=== PATIENT | male | born 1965 | race African-American/Black ===

== ENCOUNTER 2019-11-17 17:08 | Inpatient (IN) | payer OTHER ==
[2019-11-17 18:36] VITALS: BMI 20.3
--- NOTE | 2019-11-18 02:54 | HP ---
CIWA Score Nausea/Vomitin Muscle Tremors: 4-Moderate,w/Arms Extend Anxiety: 3 Agitation: 4-Moderately Restless Paroxysmal Sweats: 2 Orientation: 0-Oriented Tacttile Disturbances: 0-None Auditory Disturbances: 0-None Visual Disturbances: 0-None Headache: 0-None Present CIWA-Ar Total Score: 15 - Admission Criteria OASAS Guidelines: Admission for Medically Managed Detox: Requires at least one of the followin. CIWA greater than 12 2. Seizures within the past 24 hours 3. Delirium tremens within the past 24 hours 4. Hallucinations within the past 24 hours 5. Acute intervention needed for co occurring medical disorder 6. Acute intervention needed for co occurring psychiatric disorder 7. Severe withdrawal that cannot be handled at a lower level of care (continued vomiting, continued diarrhea, abnormal vital signs) requiring intravenous medication and/or fluids 8. Admission ROS S - HPI Chief Complaint: Seeking admission to detox from alcohol Allergies/Adverse Reactions: Allergies Allergy/AdvReac Type Severity Reaction Status Date / Time No Known Allergies Allergy Verified 11/17/19 18:24 History of Present Illness: 54 years old male with a long history of alcohol dependence(since age 26) is seeking admission to detox. Patient was referred by [facility] where he sought medical help status post a fall. He denies past medical history , psych. history and suicidal ideation. 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 Exam Limitations: No Limitations - Ebola screening Have you traveled outside of the country in the last 21 days: No (N) Have you had contact with anyone from an Ebola affected area: No Do you have a fever: No - Review of Systems Constitutional: Malaise, Night Sweats, Changes in sleep, Weakness EENT: reports: Nose Congestion Respiratory: reports: No Symptoms reported Cardiac: reports: No Symptoms Reported GI: reports: Nausea, Poor Appetite, Poor Fluid Intake, Abdominal cramping : reports: No Symptoms Reported Integumentary: reports: Dryness, Flushing Neuro: reports: Tremors Endocrine: reports: No Symptoms Reported Hematology: reports: No Symptoms Reported Psychiatric: reports: Orientated x3, Anxious, Depressed Other Systems: Reviewed and Negative Patient History - Patient Medical History Hx Anemia: No Hx Asthma: No Hx Chronic Obstructive Pulmonary Disease (COPD): No Hx Cancer: No Hx Cardiac Disorders: No Hx Congestive Heart Failure: No Hx Hypertension: No Hx Hypercholesterolemia: No Hx Pacemaker: No HX Cerebrovascular Accident: No Hx Seizures: No Hx Dementia: No Hx Diabetes: No Hx Gastrointestinal Disorders: No Hx Liver Disease: No Hx Sexually Transmitted Disorders: No Hx Renal Disease (ESRD): No Hx Thyroid Disease: No Hx Human Immunodeficiency Virus (HIV): No (Never tested) Hx Hepatitis C: No Hx Depression: No Hx Suicide Attempt: No Hx Bipolar Disorder: No Hx Schizophrenia: No - Patient Surgical History Past Surgical History: No - PPD History Previous Implant?: Yes Documented Results: Negative w/o proof Implanted On Prior R Admission?: No PPD to be Administered?: Yes - Reproductive History Patient is a Female of Child Bearing Age (11 -55 yrs old): No (male) - Smoking Cessation Smoking history: Never smoked Have you smoked in the past 12 months: No Hx Chewing Tobacco Use: No Initiated information on smoking cessation: No - Substance & Tx. History Hx Alcohol Use: Yes Hx Substance Use: Yes Substance Use Type: Alcohol, Marijuana Hx Substance Use Treatment: No - Substances abused Alcohol Substance route: Oral Frequency: Daily Amount used: 2 beers Age of first use: 26 Date of last use: 11/16/19 Admission Physical Exam [facility] - Vital Signs Vital Signs: Vital Signs - 24 hr 11/17/19 11/17/19 18:22 18:44 Temperature 98.7 F 98.7 F Pulse Rate 83 83 Respiratory 16 16 Rate Blood Pressure 120/90 120/90 - Physical General Appearance: Yes: Within Normal Limits, Tremorous HEENTM: Yes: Within Normal Limits Respiratory: Yes: Normal Breath Sounds Neck: Yes: Within Normal Limits Breast: Yes: Breast Exam Deferred Cardiology: Yes: Regular Rhythm, Regular Rate Abdominal: Yes: Normal Bowel Sounds, Soft Genitourinary: Yes: Within Normal Limits Back: Yes: Normal Inspection Musculoskeletal: Yes: Within Normal Limits Extremities: Yes: Normal Inspection Neurological: Yes: Within Normal Limits, Alert, Normal Mood/Affect Integumentary: Yes: Normal Color, Mottled Lymphatic: Yes: Within Normal Limits - Diagnostic (1) Alcohol dependence with withdrawal, uncomplicated Current Visit: Yes Status: Acute Cleared for Admission [facility] - Detox or Rehab [facility] Level of Care: Medically Managed Detox Regimen/Protocol: Librium Claeared for Rehab Admission: No Screened but not Admitted - Documentation of Visit Patient Does Not Meet Criteria for Admission: No Breathalyzer - Breathalyzer Breathalyzer: 0 Urine Drug Screen - Test Device Lot number: [id number] Expiration date: 05/27/21 - Control Is test valid?: Yes - Results Drug screen NEGATIVE: No Urine drug screen results: THC-Marijuana, BZO-Benzodiazepines Inpatient Rehab Admission - Rehab Decision to Admit Inpatient rehab admission?: No
[2019-11-18] MEDS ORDERED: chlordiazePOXIDE HCL 10 MG CAPSULE PO PRN (03:14)
[2019-11-18] MEDS ORDERED: MAGNESIUM HYDROX 2400MG/30ML ORAL SUSPENSION 30 ML CUP PO PRN (03:14)
[2019-11-18] MEDS ORDERED: ACETAMINOPHEN 325 MG TABLET (FP) PO PRN ×2 (03:14)
[2019-11-18] MEDS ORDERED: BISMUTH SUBSALICYLATE 524 MG/30 ML UD PO PRN (03:14)
[2019-11-18] MEDS ORDERED: MAG HYDROX/AL HYDROX/SIMETH 30 ML UNIT-DOSE CUP PO PRN (03:14)
[2019-11-18] MEDS ORDERED: MENTHOL/PHENOL 1 EACH UD MM PRN (03:14)
[2019-11-18] MEDS ORDERED: METHOCARBAMOL 500 MG TABLET PO PRN (03:14)
[2019-11-18] MEDS ORDERED: MAGNESIUM CITRATE 300 ML BOTTLE PO PRN (03:14)
[2019-11-18] MEDS ORDERED: IBUPROFEN 400 MG TABLET (FP) PO PRN (03:14)
[2019-11-18] MEDS: chlordiazePOXIDE HCL 25 MG CAPSULE PO SCH ×3 (04:29→21:28)
--- NOTE | 2019-11-18 10:29 | EKG ---
Test Reason : Blood Pressure : / mmHG Vent. Rate : 057 BPM Atrial Rate : 057 BPM P-R Int : 136 ms QRS Dur : 086 ms QT Int : 430 ms P-R-T Axes : 063 017 039 degrees QTc Int : 418 ms POOR DATA QUALITY, INTERPRETATION MAY BE ADVERSELY AFFECTED SINUS BRADYCARDIA POSSIBLE LEFT ATRIAL ENLARGEMENT BORDERLINE ECG NO PREVIOUS ECGS AVAILABLE Confirmed by EDGARD DALE, VAL ([id number]) on 11/18/2019 10:29:23 AM Referred By: ANIBAL Confirmed By:VAL RENE MD
[2019-11-18] MEDS: PRENATAL VITAMINS W/ FOLIC ACID TABLET (FP) PO SCH (10:42)
--- NOTE | 2019-11-18 12:41 | PN ---
S CIWA - CIWA Score Nausea/Vomitin-No Nausea/No Vomiting Muscle Tremors: 2 Anxiety: 1-Mildly Anxious Agitation: 2 Paroxysmal Sweats: 2 Orientation: 0-Oriented Tacttile Disturbances: 0-None Auditory Disturbances: 0-None Visual Disturbances: 0-None Headache: 0-None Present CIWA-Ar Total Score: 7 BHS Progress Note (SOAP) Subjective: feeling better sweats little anxiety Objective: 11/18/19 12:40 Vital Signs Temperature 98.1 F 11/18/19 09:25 Pulse Rate 78 11/18/19 09:25 Respiratory Rate 18 11/18/19 09:25 Blood Pressure 136/91 11/18/19 09:25 O2 Sat by Pulse Oximetry (%) aaox3 ambulating no acute distress pending labs Assessment: 11/18/19 12:40 withdrawals Plan: continue detox increase fluids
[2019-11-18] MEDS: THIAMINE HCL 100 MG TABLET (FP) PO SCH (21:28)
[2019-11-18] MEDS: MELATONIN 5 MG TABLETS PO PRN (21:28)
[2019-11-19] MEDS: chlordiazePOXIDE 5 MG CAPSULE PO SCH ×3 (06:00→22:38)
[2019-11-19 10:21] LABS: HEMATOCRIT 36.3 % (35.4-49); HEMOGLOBIN 12.2 GM/dL (11.7-16.9); MCH 32.5 pg (25.7-33.7); MCHC 33.6 g/dl (32.0-35.9); MEAN CELL VOLUME 96.9 fl (80-96); MEAN PLT VOLUME 9.2 fl (7.5-11.1); PLATELET COUNT 136 K/MM3 (134-434); RBC 3.75 M/mm3 (4.00-5.60); RDW 13.7 % (11.9-15.9); WHITE BLOOD COUNT 6.1 K/mm3 (4.0-10.0)
[2019-11-19] MEDS: PRENATAL VITAMINS W/ FOLIC ACID TABLET (FP) PO SCH (10:21)
[2019-11-19 10:38] LABS: ALBUMIN 3.6 g/dl (3.4-5.0); BILIRUBIN,TOTAL 1.6 mg/dL (0.2-1); BLOOD UREA NITROGEN 5.1 mg/dL (7-18); CREATININE 0.8 mg/dL (0.55-1.3); POTASSIUM 4.1 mmol/L (3.5-5.1); TOT PROT 7.6 g/dl (6.4-8.2)
--- NOTE | 2019-11-19 11:45 | PN ---
[facility] CIWA - CIWA Score Nausea/Vomitin-No Nausea/No Vomiting Muscle Tremors: 1-None Visible, but [place] Anxiety: 0-No Anxiety, at Ease Agitation: 0-Normal Activity Paroxysmal Sweats: No Perspiration Orientation: 0-Oriented Tacttile Disturbances: 0-None Auditory Disturbances: 0-None Visual Disturbances: 0-None Headache: 0-None Present CIWA-Ar Total Score: 1 BHS Progress Note (SOAP) Subjective: Feeling well, no complaints Objective: 11/19/19 11:42 11/19/19 11:44 Vital Signs Temperature 98.4 F 11/19/19 11:04 Pulse Rate 92 H 11/19/19 11:04 Respiratory Rate 18 11/19/19 11:04 Blood Pressure 100/66 11/19/19 11:04 O2 Sat by Pulse Oximetry (%) Laboratory Last Values WBC 6.1 K/mm3 (4.0-10.0) 11/19/19 08:00 RBC 3.75 M/mm3 (4.00-5.60) L 11/19/19 08:00 Hgb 12.2 GM/dL (11.7-16.9) 11/19/19 08:00 Hct 36.3 % (35.4-49) 11/19/19 08:00 MCV 96.9 fl (80-96) H 11/19/19 08:00 MCH 32.5 pg (25.7-33.7) 11/19/19 08:00 MCHC 33.6 g/dl (32.0-35.9) 11/19/19 08:00 RDW 13.7 % (11.9-15.9) 11/19/19 08:00 Plt Count 136 K/MM3 (134-434) 11/19/19 08:00 MPV 9.2 fl (7.5-11.1) 11/19/19 08:00 Sodium 140 mmol/L (136-145) 11/19/19 08:00 Potassium 4.1 mmol/L (3.5-5.1) 11/19/19 08:00 Chloride 104 mmol/L (98-107) 11/19/19 08:00 Carbon Dioxide 30 mmol/L (21-32) 11/19/19 08:00 Anion Gap 6 MMOL/L (8-16) L 11/19/19 08:00 BUN 5.1 mg/dL (7-18) L 11/19/19 08:00 Creatinine 0.8 mg/dL (0.55-1.3) 11/19/19 08:00 Est GFR (CKD-EPI)AfAm 118.20 11/19/19 08:00 Est GFR (CKD-EPI)NonAf 101.99 11/19/19 08:00 Random Glucose 106 mg/dL (74-106) 11/19/19 08:00 Calcium 10.0 mg/dL (8.5-10.1) 11/19/19 08:00 Total Bilirubin 1.6 mg/dL (0.2-1) H 11/19/19 08:00 AST 65 U/L (15-37) H 11/19/19 08:00 ALT 67 U/L (13-61) H 11/19/19 08:00 Alkaline Phosphatase 48 U/L (45-117) 11/19/19 08:00 Total Protein 7.6 g/dl (6.4-8.2) 11/19/19 08:00 Albumin 3.6 g/dl (3.4-5.0) 11/19/19 08:00 Gnl: WDWN, in NAD Awake, alert Ambulating in garcia Assessment: 11/19/19 11:43 1. Alcohol detox Plan: 1. continue alcohol detox protocol
--- NOTE | 2019-11-19 15:15 | EKG ---
Test Reason : Blood Pressure : / mmHG Vent. Rate : 075 BPM Atrial Rate : 075 BPM P-R Int : 142 ms QRS Dur : 084 ms QT Int : 378 ms P-R-T Axes : 053 003 051 degrees QTc Int : 422 ms NORMAL SINUS RHYTHM NORMAL ECG WHEN COMPARED WITH ECG OF 18-NOV-2019 03:35, NO SIGNIFICANT CHANGE WAS FOUND Confirmed by CHARIS ARGUELLES MD ([id number]) on 11/19/2019 3:15:18 PM Referred By: Confirmed By:CHARIS ARGUELLES MD
[2019-11-19] MEDS: THIAMINE HCL 100 MG TABLET (FP) PO SCH (22:38)
[2019-11-19] MEDS: MELATONIN 5 MG TABLETS PO PRN (22:38)
[2019-11-20] MEDS ORDERED: chlordiazePOXIDE HCL 10 MG CAPSULE PO PRN
[2019-11-20] MEDS: chlordiazePOXIDE HCL 10 MG CAPSULE PO SCH ×3 (06:23→22:03)
[2019-11-20] MEDS: PRENATAL VITAMINS W/ FOLIC ACID TABLET (FP) PO SCH (10:59)
--- NOTE | 2019-11-20 13:53 | PN ---
[facility] CIWA - CIWA Score Nausea/Vomitin-No Nausea/No Vomiting Muscle Tremors: 1-None Visible, but [place] Anxiety: 0-No Anxiety, at Ease Agitation: 0-Normal Activity Paroxysmal Sweats: No Perspiration Orientation: 0-Oriented Tacttile Disturbances: 0-None Auditory Disturbances: 0-None Visual Disturbances: 0-None Headache: 0-None Present CIWA-Ar Total Score: 1 BHS Progress Note (SOAP) Subjective: sweats Objective: 11/20/19 13:52 Vital Signs Temperature 97.7 F 11/20/19 13:51 Pulse Rate 114 H 11/20/19 13:51 Respiratory Rate 18 11/20/19 13:51 Blood Pressure 100/64 11/20/19 13:51 O2 Sat by Pulse Oximetry (%) aaox3 ambulating no acute distress Assessment: 11/20/19 13:52 mild withdrawal sx Plan: d/c in am
[2019-11-20] MEDS: MELATONIN 5 MG TABLETS PO PRN (22:03)
[2019-11-20] MEDS: THIAMINE HCL 100 MG TABLET (FP) PO SCH (22:03)
[2019-11-21] MEDS ORDERED: chlordiazePOXIDE HCL 10 MG CAPSULE PO ONE (05:00)
[2019-11-21 06:09] VITALS: BP 117/76; PULSE 75; TEMP 97.9
--- NOTE | 2019-11-21 18:25 | DS ---
[facility] Detox Discharge Summary Admission Date: 11/18/19 Discharge Date: 11/21/19 - History Present History: Alcohol Dependence Additional Comments: PATIENT WILL ATTEND LOCAL 12-STEP/ AA OUTPATIENT SUPPORT GROUP PROGRAM PART OF AFTERCARE. PATIENT WAS DISCHARGED FROM DETOX UNIT IN STABLE MEDICAL CONDITION. Pertinent Past History: Denies. - Physical Exam Results Vital Signs: Vital Signs Temperature 97.9 F 11/21/19 06:08 Pulse Rate 75 11/21/19 06:08 Respiratory Rate 18 11/21/19 06:08 Blood Pressure 117/76 11/21/19 06:08 O2 Sat by Pulse Oximetry (%) Pertinent Admission Physical Exam Findings: WITHDRAWAL SYMPTOMS. Laboratory Tests 11/19/19 11/19/19 11/19/19 08:00 08:00 08:00 WBC 6.1 RBC 3.75 L Hgb 12.2 Hct 36.3 MCV 96.9 H MCH 32.5 MCHC 33.6 RDW 13.7 Plt Count 136 MPV 9.2 Sodium 140 Potassium 4.1 Chloride 104 Carbon Dioxide 30 Anion Gap 6 L BUN 5.1 L Creatinine 0.8 Est GFR (CKD-EPI)AfAm 118.20 Est GFR (CKD-EPI)NonAf 101.99 Random Glucose 106 Calcium 10.0 Total Bilirubin 1.6 H AST 65 H ALT 67 H Alkaline Phosphatase 48 Total Protein 7.6 Albumin 3.6 RPR Titer Nonreactive LABS NOTED. - Treatment Hospital Course: Detox Protocol Followed, Detoxed Safely, Responded well, Discharged Condition Good Patient has Accepted a Rehab Referral to: PATIENT WILL ATTEND LOCAL 12-AA OUTPATIENT SUPPORT GROUP. - Medication Discharge Medications: Ambulatory Orders NK [No Known Home Medication] 11/17/19 - Diagnosis (1) Alcohol dependence with withdrawal, uncomplicated Status: Acute - AMA Did Patient Leave Against Medical Advice: No
== END 2019-11-21 07:01 | disposition home or self-care (01) | DRG 775 ==
LOC: YASAS 17:08 → Y6N 11-18 03:22
PROVIDERS: ADMIT Allergy & Immunology; ATTEND Allergy & Immunology
PROC: HZ2ZZZZ Detoxification Services for Substance Abuse Treatment (ICD-10-PCS; principal; 2019-11-18)
DX: F10.230 Alcohol dependence with withdrawal, uncomplicated (principal)
CPT/HCPCS: 36415; 80053; 85027; 86593; 93005; 93010

== ENCOUNTER 2020-08-16 08:51 | Inpatient (IN) | payer OTHER ==
--- OUTSIDE RECORDS SUMMARY | 2020-08-16 08:54 | XMS ---
:1965 Author Organization [facility] Support Name Relationship Address Phone UE Unavailable Unavailable Unavailable MEGAN MAGALLANES SISTER [address] [place] [address] Re-disclosure Warning The records that you are about to access may contain information from federally- assisted alcohol or drug abuse programs. If such information is present, then the following federally mandated warning applies: This information has been disclosed to you from records protected by federal confidentiality rules (42 CFR part 2). The federal rules prohibit you from making any further disclosure of this information unless further disclosure is expressly permitted by the written consent of the person to whom it pertains or as otherwise permitted by 42 CFR part 2. A general authorization for the release of medical or other information is NOT sufficient for this purpose. The Federal rules restrict any use of the information to criminally investigate or prosecute any alcohol or drug abuse patient.The records that you are about to access may contain highly sensitive health information, the redisclosure of which is protected by Article 27-F of the [facility] Public Health law. If you continue you may haveaccess to information: Regarding HIV / AIDS; Provided by facilities licensed or operated by the [facility] Office of Mental Health; or Provided by the [facility] Office for People With Developmental Disabilities. If such information is present, then the following [facility] mandated warning applies: This information has been disclosed to you from confidential records which are protected by state law. State law prohibits you from making any further disclosure of this information without the specific written consent of the person to whom it pertains, or as otherwise permitted by law. Any unauthorized further disclosure in violation of state law may result in a fine or detention sentence or both. A general authorization for the release of medical or other information is NOT sufficient authorization for further disclosure. Insurance Providers Payer name Policy type Policy ID Covered Covered alliance party's Policy P melonie / Coverage alliance party ID relationship to [facility] ormation type [facility] [id number] FIRST Results ID Date Data Source [id number] 07/01/2020 09:57:[address] [facility] System Name Value Range Interpretation Code Description Data Cynthia rce(s) Supporting Document(s ) SARS-CoV-2 [facility] Ql KAITLYNN+probe This lab was ordered by [facility] and reported by [facility]. ID Date Data Source [id number] 02/27/2020 05:24:[address] [facility] Name Value Range Interpretation Code Description Data Cynthia rce(s) Supporting Document(s ) SARS-CoV-2 [facility] Ql KAITLYNN+probe This lab was ordered by [facility] and reported by [facility]. Procedure
--- NOTE | 2020-08-16 09:34 | BHS.RME ---
2019 N Coronavirus Screen - COVID-19 Screening Questions Dx of COVID-19 or had a positive test in the last 4 weeks?: No Contact with known/suspected COVID patient in last 14 days?: No Any of these symptoms or contact with someone who has?: None Traveled domestically/internationally in the last 14 days?: No Screen score: 0 Screen result: Further Evaluation Substance Use & Tx History - Substance Use History Alcohol Substance amount: 4 x 24 ounce beer Frequency of use: Daily Substance route: Oral Date of Last Use: 08/15/20 - Last Treatment Date of last treatment: February 2020, detox Physical/Psych/Mental Status - Behavior General Behavior: Increased activity (restlessness, agitation) Eye Contact: Normal - Cooperativeness Cooperativeness: Cooperative - Thinking Thought Processes: Tight Thought content: Future oriented - Physical Health Problems Is patient presently having any pain?: Yes (neck hurts he attributes to sleeping on the floor) Does patient presently have any injuries (include location): No Does patient currently have a fever: No CIWA Nausea/Vomitin-Mild Nausea/No Vomiting Muscle Tremors: 4-Moderate,w/Arms Extend Anxiety: 3 Agitation: 0-Normal Activity Paroxysmal Sweats: No Perspiration Orientation: 0-Oriented Tacttile Disturbances: 0-None Auditory Disturbances: 1-Very Mild Visual Disturbances: 0-None Headache: 3-Moderate CIWA-Ar Total Score: 12
[2020-08-16 10:39] VITALS: BMI 20.1
--- NOTE | 2020-08-16 10:47 | HP ---
CIWA Score Nausea/Vomitin-Mild Nausea/No Vomiting Muscle Tremors: 4-Moderate,w/Arms Extend Anxiety: 3 Agitation: 0-Normal Activity Paroxysmal Sweats: No Perspiration Orientation: 0-Oriented Tacttile Disturbances: 0-None Auditory Disturbances: 1-Very Mild Visual Disturbances: 0-None Headache: 3-Moderate CIWA-Ar Total Score: 12 - Admission Criteria OASAS Guidelines: Admission for Medically Managed Detox: Requires at least one of the followin. CIWA greater than 12 2. Seizures within the past 24 hours 3. Delirium tremens within the past 24 hours 4. Hallucinations within the past 24 hours 5. Acute intervention needed for co occurring medical disorder 6. Acute intervention needed for co occurring psychiatric disorder 7. Severe withdrawal that cannot be handled at a lower level of care (continued vomiting, continued diarrhea, abnormal vital signs) requiring intravenous medication and/or fluids 8. Admitting History and Physical - Admission Chief Complaint: Mr. Ritter is a 55 yo man who presents to [facility] requesting admission for alcohol use disorder. History of Present Illness: Mr. Ritter is a 55 yo man who presents to [facility] requesting admission for alcohol use disorder. He was last here in February and completed detox. He states he attended AA after discharge, but, then the meetings were cancelled due to COVID. PMH: fell in 1989 with DVT, DVT tx x 6 years, currently not on any anticoagulation PSH/Psych/Legal: none SOC: lives with sister Substance Use History Alcohol Substance amount: 4 x 24 ounce beer Frequency of use: Daily Substance route: Oral Date of Last Use: 08/15/20 No hx of seizure, blackouts. 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 - Last Treatment Date of last treatment: February 2020, detox History Source: Patient Limitations to Obtaining History: No Limitations - Smoking History Smoking history: Never smoked Have you smoked in the past 12 months: No - Alcohol/Substance Use Hx Alcohol Use: Yes Admission ROS [facility] Allergies/Adverse Reactions: Allergies Allergy/AdvReac Type Severity Reaction Status Date / Time No Known Allergies Allergy Verified 08/16/20 10:36 Exam Limitations: No Limitations - Ebola screening Have you traveled outside of the country in the last 21 days: No Have you been sick,other than usual withdrawal symptoms: No Do you have a fever: No - Review of Systems Constitutional: No Symptoms Reported EENT: reports: No Symptoms Reported Respiratory: reports: No Symptoms reported Cardiac: reports: No Symptoms Reported GI: reports: Nausea : reports: No Symptoms Reported Musculoskeletal: reports: Neck Pain (he attributes to sleeping on the floor the last few nights) Integumentary: reports: No Symptoms Reported Neuro: reports: No Symptoms reported Endocrine: reports: No Symptoms Reported Hematology: reports: No Symptoms Reported Psychiatric: reports: Anxious Patient History - Patient Medical History Hx Anemia: No Hx Asthma: No Hx Chronic Obstructive Pulmonary Disease (COPD): No Hx Cancer: No Hx Cardiac Disorders: No Hx Congestive Heart Failure: No Hx Hypertension: No Hx Hypercholesterolemia: No Hx Pacemaker: No HX Cerebrovascular Accident: No Hx Seizures: No Hx Dementia: No Hx Diabetes: No Hx Gastrointestinal Disorders: No Hx Liver Disease: No Hx Genitourinary Disorders: No Hx Sexually Transmitted Disorders: No Hx Renal Disease (ESRD): No Hx Thyroid Disease: No Hx Human Immunodeficiency Virus (HIV): No (Never tested) Hx Hepatitis C: No Hx Depression: No Hx Suicide Attempt: No Hx Bipolar Disorder: No Hx Schizophrenia: No - Patient Surgical History Past Surgical History: No - PPD History Date: 11/20/19 Results: 0mm - Smoking Cessation Smoking history: Never smoked Have you smoked in the past 12 months: No Hx Chewing Tobacco Use: No Initiated information on smoking cessation: No Admission Physical Exam [facility] - Vital Signs Vital Signs: Vital Signs - 24 hr 08/16/20 10:38 Temperature 97.6 F Pulse Rate 67 Respiratory 20 Rate Blood Pressure 153/84 NILS 0 UDS: neg - Physical General Appearance: Yes: Nourished, Appropriately Dressed, Tremorous HEENTM: Yes: EOMI, Hearing grossly Normal, Normocephalic, Normal Voice Respiratory: Yes: Lungs Clear, No Respiratory Distress, No Accessory Muscle Use Neck: Yes: Within Normal Limits, Supple Breast: Yes: Breast Exam Deferred Abdominal: Yes: Normal Bowel Sounds, Non Tender, Flat, Soft Genitourinary: Yes: Other (deferred) Back: Yes: Normal Inspection Musculoskeletal: Yes: Gait Steady Extremities: Yes: Normal Inspection, Non-Tender Neurological: Yes: Alert, Normal Response Integumentary: Yes: Normal Color, Dry, Warm - Diagnostic (1) Alcohol dependence with withdrawal, uncomplicated Current Visit: No Status: Chronic Cleared for Admission S - Detox or Rehab S Level of Care: Medically Managed Detox Regimen/Protocol: Ativan Breathalyzer - Breathalyzer Breathalyzer: 0 Urine Drug Screen - Test Device Lot number: [id number] Expiration date: 02/02/22 - Control Is test valid?: Yes - Results Drug screen NEGATIVE: Yes Inpatient Rehab Admission - Rehab Decision to Admit Inpatient rehab admission?: No
[2020-08-16] MEDS ORDERED: IBUPROFEN 400 MG TABLET (FP) PO PRN (10:52)
[2020-08-16] MEDS ORDERED: ACETAMINOPHEN 325 MG TABLET (FP) PO PRN ×2 (10:52)
[2020-08-16] MEDS ORDERED: BISMUTH SUBSALICYLATE 524 MG/30 ML UD PO PRN (10:52)
[2020-08-16] MEDS ORDERED: ONDANSETRON *ODT* 4 MG TABLET SL PRN (10:52)
[2020-08-16] MEDS ORDERED: MAGNESIUM HYDROX 2400MG/30ML ORAL SUSPENSION 30 ML CUP PO PRN (10:52)
[2020-08-16] MEDS ORDERED: MAGNESIUM CITRATE 300 ML BOTTLE PO PRN (10:52)
[2020-08-16] MEDS ORDERED: MAG HYDROX/AL HYDROX/SIMETH 30 ML UNIT-DOSE CUP PO PRN (10:52)
[2020-08-16] MEDS ORDERED: LORazepam 1 MG TABLET PO PRN (10:52)
[2020-08-16] MEDS ORDERED: MENTHOL/PHENOL 1 EACH UD MM PRN (10:52)
[2020-08-16] MEDS ORDERED: METHOCARBAMOL 500 MG TABLET PO PRN (10:52)
--- OUTSIDE RECORDS SUMMARY | 2020-08-16 11:08 | XMS ---
:1965 Author Organization [facility] Support Name Relationship Address Phone UE Unavailable Unavailable Unavailable MEGAN MAGALLANES SISTER [address] [place] [address] Re-disclosure Warning The records that you are [...] is protected by Article 27-F of the [facility] Public Health law. If you continue you may haveaccess to information: Regarding HIV / AIDS; Provided by facilities licensed or operated by the [facility] Office of Mental Health; or Provided by the [facility] Office for People With Developmental Disabilities. If such information is present, then the following [facility] mandated warning applies: This information has [...] law may result in a fine or fpc sentence or both. A general authorization for the release of medical or other information is NOT sufficient authorization for further disclosure. Insurance Providers Payer name Policy type Policy ID Covered Covered alliance party's Policy P melonie / Coverage alliance party ID relationship to [facility] ormation type [facility] [id number] FIRST Results ID Date Data Source [id number] 07/01/2020 09:57:00 PM EDT [facility] System Name Value Range Interpretation Code Description Data Cynthia rce(s) Supporting Document(s ) SARS-CoV-2 [facility] Ql KAITLYNN+probe This lab was ordered by [facility] and reported by [facility]. ID Date Data Source [id number] 02/27/2020 05:24:00 PM EDT [facility] System Name Value Range Interpretation Code Description Data Cynthia rce(s) Supporting Document(s ) SARS-CoV-2 [facility] Ql KAITLYNN+probe This lab was ordered by [facility] and reported by [facility]. Procedure
[2020-08-16] MEDS ORDERED: hydrOXYzine PAMOATE 25 MG CAPSULE (FP) PO PRN (11:25)
[2020-08-16] MEDS: LORazepam 2 MG TABLET PO SCH ×3 (11:28→22:34)
[2020-08-16] MEDS ORDERED: hydrOXYzine PAMOATE 25 MG CAPSULE (FP) PO SCH (14:00)
[2020-08-16 14:34] LABS: HEMATOCRIT 39.3 % (35.4-49); HEMOGLOBIN 12.8 GM/dL (11.7-16.9); MCH 32.1 pg (25.7-33.7); MCHC 32.5 g/dl (32.0-35.9); MEAN CELL VOLUME 98.6 fl (80-96); MEAN PLT VOLUME 9.1 fl (7.5-11.1); PLATELET COUNT 162 K/MM3 (134-434); RBC 3.98 M/mm3 (4.00-5.60); RDW 14.2 % (11.9-15.9); WHITE BLOOD COUNT 6.8 K/mm3 (4.0-10.0)
[2020-08-16 14:35] LABS: POTASSIUM 3.5 mmol/L (3.5-5.1)
[2020-08-16 14:39] LABS: ALBUMIN 4.1 g/dl (3.4-5.0); BLOOD UREA NITROGEN 4.6 mg/dL (7-18); CALCIUM 9.2 mg/dL (8.5-10.1)
[2020-08-16 14:43] LABS: CREATININE 0.8 mg/dL (0.55-1.3)
[2020-08-16 14:44] LABS: BILIRUBIN,TOTAL 1.4 mg/dL (0.2-1); TOT PROT 8.5 g/dl (6.4-8.2)
[2020-08-16] MEDS: THIAMINE HCL 100 MG TABLET (FP) PO SCH (22:34)
[2020-08-16] MEDS: MELATONIN 5 MG TABLETS PO SCH (22:35)
[2020-08-17] MEDS: LORazepam 2 MG TABLET PO SCH ×4 (05:24→22:40)
[2020-08-17] MEDS: PRENATAL VITAMINS W/ FOLIC ACID TABLET (FP) PO SCH (10:17)
--- NOTE | 2020-08-17 10:17 | PN ---
S CIWA - CIWA Score Nausea/Vomitin-No Nausea/No Vomiting Muscle Tremors: 2 Anxiety: 1-Mildly Anxious Agitation: 2 Paroxysmal Sweats: 2 Orientation: 0-Oriented Tacttile Disturbances: 0-None Auditory Disturbances: 0-None Visual Disturbances: 0-None Headache: 0-None Present CIWA-Ar Total Score: 7 BHS Progress Note (SOAP) Subjective: sweats chills interrupted sleep Objective: 08/17/20 10:21 Vital Signs Temperature 97.1 F L 08/17/20 09:02 Pulse Rate 78 08/17/20 09:02 Respiratory Rate 16 08/17/20 09:02 Blood Pressure 134/72 08/17/20 09:02 O2 Sat by Pulse Oximetry (%) 98 08/17/20 09:02 Laboratory Tests 08/16/20 08/16/20 08/16/20 10:42 10:42 10:42 WBC 6.8 RBC 3.98 L Hgb 12.8 Hct 39.3 MCV 98.6 H MCH 32.1 MCHC 32.5 RDW 14.2 Plt Count 162 D MPV 9.1 Sodium 137 Potassium 3.5 Chloride 101 Carbon Dioxide 26 Anion Gap 10 BUN 4.6 L Creatinine 0.8 Est GFR (CKD-EPI)AfAm 117.38 Est GFR (CKD-EPI)NonAf 101.27 Random Glucose 186 H Calcium 9.2 Total Bilirubin 1.4 H AST 45 H ALT 34 Alkaline Phosphatase 48 Total Protein 8.5 H Albumin 4.1 Syphilis Serology Non-reactive labs noted aaox3 ambulating no acute distress Assessment: 08/17/20 10:22 withdrawals Plan: continue detox increase fluids
--- NOTE | 2020-08-17 10:55 | PN ---
S Progress Note Note: Laboratory Last Values WBC 6.8 K/mm3 (4.0-10.0) 08/16/20 10:42 RBC 3.98 M/mm3 (4.00-5.60) L 08/16/20 10:42 Hgb 12.8 GM/dL (11.7-16.9) 08/16/20 10:42 Hct 39.3 % (35.4-49) 08/16/20 10:42 MCV 98.6 fl (80-96) H 08/16/20 10:42 MCH 32.1 pg (25.7-33.7) 08/16/20 10:42 MCHC 32.5 g/dl (32.0-35.9) 08/16/20 10:42 RDW 14.2 % (11.9-15.9) 08/16/20 10:42 Plt Count 162 K/MM3 (134-434) D 08/16/20 10:42 MPV 9.1 fl (7.5-11.1) 08/16/20 10:42 Sodium 137 mmol/L (136-145) 08/16/20 10:42 Potassium 3.5 mmol/L (3.5-5.1) 08/16/20 10:42 Chloride 101 mmol/L (98-107) 08/16/20 10:42 Carbon Dioxide 26 mmol/L (21-32) 08/16/20 10:42 Anion Gap 10 MMOL/L (8-16) 08/16/20 10:42 BUN 4.6 mg/dL (7-18) L 08/16/20 10:42 Creatinine 0.8 mg/dL (0.55-1.3) 08/16/20 10:42 Est GFR (CKD-EPI)AfAm 117.38 08/16/20 10:42 Est GFR (CKD-EPI)NonAf 101.27 08/16/20 10:42 Random Glucose 186 mg/dL (74-106) H 08/16/20 10:42 Calcium 9.2 mg/dL (8.5-10.1) 08/16/20 10:42 Total Bilirubin 1.4 mg/dL (0.2-1) H 08/16/20 10:42 AST 45 U/L (15-37) H 08/16/20 10:42 ALT 34 U/L (13-61) 08/16/20 10:42 Alkaline Phosphatase 48 U/L (45-117) 08/16/20 10:42 Total Protein 8.5 g/dl (6.4-8.2) H 08/16/20 10:42 Albumin 4.1 g/dl (3.4-5.0) 08/16/20 10:42 Syphilis Serology Non-reactive (NONREACTIVE) 08/16/20 10:42 initial glucose is 186,bi 1.4,ast 45,will do fasting glucose and repeat cmp in am,fluid
[2020-08-17] MEDS: THIAMINE HCL 100 MG TABLET (FP) PO SCH (22:40)
[2020-08-17] MEDS: MELATONIN 5 MG TABLETS PO SCH (22:41)
[2020-08-18] MEDS: LORazepam 1 MG TABLET PO SCH ×2 (05:21→10:21)
[2020-08-18] MEDS: PRENATAL VITAMINS W/ FOLIC ACID TABLET (FP) PO SCH (09:56)
[2020-08-18 10:31] VITALS: BP 122/77; PULSE 100; TEMP 98
--- NOTE | 2020-08-18 13:31 | PN ---
[facility] CIWA - CIWA Score Nausea/Vomitin-No Nausea/No Vomiting Muscle Tremors: None Anxiety: 1-Mildly Anxious Agitation: 0-Normal Activity Paroxysmal Sweats: No Perspiration Orientation: 0-Oriented Tacttile Disturbances: 0-None Auditory Disturbances: 0-None Visual Disturbances: 0-None Headache: 0-None Present CIWA-Ar Total Score: 1 S Progress Note (SOAP) Subjective: alert,no complaint Objective: 08/18/20 13:27 Vital Signs Temperature 98.0 F 08/18/20 09:10 Pulse Rate 100 H 08/18/20 09:10 Respiratory Rate 18 08/18/20 09:10 Blood Pressure 122/77 08/18/20 09:10 O2 Sat by Pulse Oximetry (%) 95 08/18/20 10:31 Assessment: 08/18/20 13:27 no withdrawal symptom Plan: stable for discharge,follow up with after care program as arrangement [facility], advise life style change on diet,no sugar,follow up with his medical provider for follow up
--- NOTE | 2020-08-18 13:38 | DS ---
[facility] Detox Discharge Summary Admission Date: 08/16/20 Discharge Date: 08/18/20 - History Present History: Alcohol Dependence Additional Comments: alert,oriented x 3 ambulation on the unit lung clear on auscultation bilaterally abdomen soft,no pain,no tenderness no edema of legs no withdrawal symptom patient is stable for discharge today denied rehab life style diet modification no sugar follow up with patient medical provider for follow up including glucose patient will follow up with after [facility] program [facility] out patient program total time spending for discharge 30 minutes - Physical Exam Results Vital Signs: Vital Signs Temperature 98.0 F 08/18/20 09:10 Pulse Rate 100 H 08/18/20 09:10 Respiratory Rate 18 08/18/20 09:10 Blood Pressure 122/77 08/18/20 09:10 O2 Sat by Pulse Oximetry (%) 95 08/18/20 10:31 Pertinent Admission Physical Exam Findings: withdrawal signs and symptom Vital Signs Temperature 98.0 F 08/18/20 09:10 Pulse Rate 100 H 08/18/20 09:10 Respiratory Rate 18 08/18/20 09:10 Blood Pressure 122/77 08/18/20 09:10 O2 Sat by Pulse Oximetry (%) 95 08/18/20 10:31 Laboratory Last Values WBC 6.8 K/mm3 (4.0-10.0) 08/16/20 10:42 RBC 3.98 M/mm3 (4.00-5.60) L 08/16/20 10:42 Hgb 12.8 GM/dL (11.7-16.9) 08/16/20 10:42 Hct 39.3 % (35.4-49) 08/16/20 10:42 MCV 98.6 fl (80-96) H 08/16/20 10:42 MCH 32.1 pg (25.7-33.7) 08/16/20 10:42 MCHC 32.5 g/dl (32.0-35.9) 08/16/20 10:42 RDW 14.2 % (11.9-15.9) 08/16/20 10:42 Plt Count 162 K/MM3 (134-434) D 08/16/20 10:42 MPV 9.1 fl (7.5-11.1) 08/16/20 10:42 Sodium 137 mmol/L (136-145) 08/16/20 10:42 Potassium 3.5 mmol/L (3.5-5.1) 08/16/20 10:42 Chloride 101 mmol/L (98-107) 08/16/20 10:42 Carbon Dioxide 26 mmol/L (21-32) 08/16/20 10:42 Anion Gap 10 MMOL/L (8-16) 08/16/20 10:42 BUN 4.6 mg/dL (7-18) L 08/16/20 10:42 Creatinine 0.8 mg/dL (0.55-1.3) 08/16/20 10:42 Est GFR (CKD-EPI)AfAm 117.38 08/16/20 10:42 Est GFR (CKD-EPI)NonAf 101.27 08/16/20 10:42 Random Glucose 186 mg/dL (74-106) H 08/16/20 10:42 Calcium 9.2 mg/dL (8.5-10.1) 08/16/20 10:42 Total Bilirubin 1.4 mg/dL (0.2-1) H 08/16/20 10:42 AST 45 U/L (15-37) H 08/16/20 10:42 ALT 34 U/L (13-61) 08/16/20 10:42 Alkaline Phosphatase 48 U/L (45-117) 08/16/20 10:42 Total Protein 8.5 g/dl (6.4-8.2) H 08/16/20 10:42 Albumin 4.1 g/dl (3.4-5.0) 08/16/20 10:42 Syphilis Serology Non-reactive (NONREACTIVE) 08/16/20 10:42 COVID-19 ([place]) Not detected (Not Detected) 08/16/20 16:20 - Treatment Hospital Course: Detox Protocol Followed, Detoxed Safely, Responded well, Discharged Condition Good Patient has Accepted a Rehab Referral to: declined - Medication Discharge Medications: Ambulatory Orders Multivitamins [Tab-A-Vit -] 1 tab PO DAILY 08/16/20 - Diagnosis (1) Alcohol dependence with withdrawal, uncomplicated Current Visit: No Status: Chronic (2) Hyperglycemia Current Visit: Yes Status: Acute - AMA Did Patient Leave Against Medical Advice: No
[2020-08-19] MEDS ORDERED: LORazepam 0.5 MG TABLET PO PRN
[2020-08-19] MEDS ORDERED: LORazepam 0.5 MG TABLET PO SCH (05:00)
[2020-08-20] MEDS ORDERED: LORazepam 0.5 MG TABLET PO ONE (05:00)
== END 2020-08-18 13:38 | disposition home or self-care (01) | DRG 775 ==
LOC: YASAS 08:51 → Y6N 11:05
PROVIDERS: ADMIT Allergy & Immunology; ATTEND Allergy & Immunology
PROC: HZ2ZZZZ Detoxification Services for Substance Abuse Treatment (ICD-10-PCS; principal; 2020-08-16)
DX: F10.230 Alcohol dependence with withdrawal, uncomplicated (principal); R73.9 Hyperglycemia, unspecified; Z86.718 Personal history of other venous thrombosis and embolism
CPT/HCPCS: 36415; 80053; 85027; 86780; C9803; U0003

== ENCOUNTER 2020-10-20 08:05 | Inpatient (IN) | payer OTHER ==
[2020-10-20 08:38] VITALS: BMI 19.8
[2020-10-20] MEDS ORDERED: NICOTINE POLACRILEX 2 MG GUM BUC PRN (09:24)
[2020-10-20] MEDS ORDERED: ONDANSETRON *ODT* 4 MG TABLET SL PRN (09:24)
[2020-10-20] MEDS ORDERED: MAG HYDROX/AL HYDROX/SIMETH 30 ML UNIT-DOSE CUP PO PRN (09:24)
[2020-10-20] MEDS ORDERED: IBUPROFEN 400 MG TABLET (FP) PO PRN (09:24)
[2020-10-20] MEDS ORDERED: MENTHOL/PHENOL 1 EACH UD MM PRN (09:24)
[2020-10-20] MEDS ORDERED: MAGNESIUM HYDROX 2400MG/30ML ORAL SUSPENSION 30 ML CUP PO PRN (09:24)
[2020-10-20] MEDS ORDERED: chlordiazePOXIDE HCL 25 MG CAPSULE PO PRN (09:24)
[2020-10-20] MEDS ORDERED: MAGNESIUM CITRATE 300 ML BOTTLE PO PRN (09:24)
[2020-10-20] MEDS ORDERED: ACETAMINOPHEN 325 MG TABLET (FP) PO PRN ×2 (09:24)
[2020-10-20] MEDS ORDERED: METHOCARBAMOL 500 MG TABLET PO PRN (09:24)
[2020-10-20] MEDS ORDERED: BISMUTH SUBSALICYLATE 262 MG/15 ML BTL PO PRN (09:24)
[2020-10-20] MEDS: hydrOXYzine PAMOATE 25 MG CAPSULE (FP) PO SCH ×4 (10:23→22:12)
[2020-10-20] MEDS: chlordiazePOXIDE HCL 25 MG CAPSULE PO SCH ×3 (10:23→22:11)
[2020-10-20] MEDS: PRENATAL VITAMINS W/ FOLIC ACID TABLET (FP) PO SCH (10:24)
[2020-10-20] MEDS: MELATONIN 5 MG TABLETS PO SCH (22:12)
[2020-10-20] MEDS: THIAMINE HCL 100 MG TABLET (FP) PO SCH (22:12)
[2020-10-21] MEDS: chlordiazePOXIDE HCL 25 MG CAPSULE PO SCH ×4 (05:54→22:16)
[2020-10-21] MEDS: hydrOXYzine PAMOATE 25 MG CAPSULE (FP) PO SCH ×5 (05:54→22:17)
[2020-10-21] MEDS: PRENATAL VITAMINS W/ FOLIC ACID TABLET (FP) PO SCH (10:19)
[2020-10-21 11:13] LABS: POTASSIUM 3.6 mmol/L (3.5-5.1)
[2020-10-21 11:17] LABS: ALBUMIN 3.2 g/dl (3.4-5.0); CALCIUM 9.2 mg/dL (8.5-10.1)
[2020-10-21 11:18] LABS: BLOOD UREA NITROGEN 4.2 mg/dL (7-18)
[2020-10-21 11:21] LABS: CREATININE 0.8 mg/dL (0.55-1.3)
[2020-10-21 11:22] LABS: BILIRUBIN,TOTAL 1.3 mg/dL (0.2-1); TOT PROT 6.9 g/dl (6.4-8.2)
[2020-10-21 11:23] LABS: BASO % 0.9 % (0-2.0); EOS % 1.9 % (0-4.5); HEMATOCRIT 37.3 % (35.4-49); HEMOGLOBIN 12.3 GM/dL (11.7-16.9); LYMPH % 19.3 % (8-40); MCH 32.2 pg (25.7-33.7); MCHC 33.1 g/dl (32.0-35.9); MEAN CELL VOLUME 97.4 fl (80-96); MEAN PLT VOLUME 8.9 fl (7.5-11.1); MONO % 12.8 % (3.8-10.2); NEUT % 65.1 % (42.8-82.8); PLATELET COUNT 256 K/MM3 (134-434); RBC 3.83 M/mm3 (4.00-5.60); WHITE BLOOD COUNT 6.4 K/mm3 (4.0-10.0)
[2020-10-21] MEDS: MELATONIN 5 MG TABLETS PO SCH (22:17)
[2020-10-21] MEDS: THIAMINE HCL 100 MG TABLET (FP) PO SCH (22:17)
[2020-10-22] MEDS: hydrOXYzine PAMOATE 25 MG CAPSULE (FP) PO SCH ×5 (06:41→23:13)
[2020-10-22] MEDS: chlordiazePOXIDE HCL 25 MG CAPSULE PO SCH ×4 (06:41→23:16)
[2020-10-22] MEDS: PRENATAL VITAMINS W/ FOLIC ACID TABLET (FP) PO SCH (10:18)
[2020-10-22] MEDS: MELATONIN 5 MG TABLETS PO SCH (23:13)
[2020-10-22] MEDS: THIAMINE HCL 100 MG TABLET (FP) PO SCH (23:13)
[2020-10-23] MEDS ORDERED: chlordiazePOXIDE HCL 10 MG CAPSULE PO PRN
[2020-10-23] MEDS: hydrOXYzine PAMOATE 25 MG CAPSULE (FP) PO SCH ×5 (06:42→23:04)
[2020-10-23] MEDS: chlordiazePOXIDE HCL 10 MG CAPSULE PO SCH ×4 (06:42→23:04)
[2020-10-23] MEDS: PRENATAL VITAMINS W/ FOLIC ACID TABLET (FP) PO SCH (10:27)
[2020-10-23] MEDS: MELATONIN 5 MG TABLETS PO SCH (23:04)
[2020-10-23] MEDS: THIAMINE HCL 100 MG TABLET (FP) PO SCH (23:04)
[2020-10-24] MEDS: hydrOXYzine PAMOATE 25 MG CAPSULE (FP) PO SCH ×5 (06:28→23:12)
[2020-10-24] MEDS: chlordiazePOXIDE HCL 10 MG CAPSULE PO SCH ×2 (06:28→18:24)
[2020-10-24] MEDS: PRENATAL VITAMINS W/ FOLIC ACID TABLET (FP) PO SCH (10:23)
[2020-10-24] MEDS: MELATONIN 5 MG TABLETS PO SCH (23:12)
[2020-10-24] MEDS: THIAMINE HCL 100 MG TABLET (FP) PO SCH (23:13)
[2020-10-25] MEDS ORDERED: chlordiazePOXIDE HCL 10 MG CAPSULE PO ONE (05:00)
[2020-10-25] MEDS: hydrOXYzine PAMOATE 25 MG CAPSULE (FP) PO SCH (05:46)
[2020-10-25 09:03] VITALS: BP 118/64; PULSE 93; TEMP 97.7
== END 2020-10-25 09:30 | disposition home or self-care (01) | DRG 775 ==
LOC: YASAS 08:05 → Y6N 09:25
PROVIDERS: ADMIT Allergy & Immunology; ATTEND Allergy & Immunology
PROC: HZ2ZZZZ Detoxification Services for Substance Abuse Treatment (ICD-10-PCS; principal; 2020-10-20)
DX: F10.230 Alcohol dependence with withdrawal, uncomplicated (principal); R73.03 Prediabetes; M25.511 Pain in right shoulder; G89.29 Other chronic pain; E80.6 Other disorders of bilirubin metabolism; E88.09 Other disorders of plasma-protein metabolism, not elsewhere classified
CPT/HCPCS: 36415; 80053; 82247; 82947; 83036; 85025; 86780

== ENCOUNTER 2021-04-09 08:16 | Inpatient (IN) | payer OTHER ==
[2021-04-09] MEDS ORDERED: MAG HYDROX/AL HYDROX/SIMETH 30 ML UNIT-DOSE CUP PO PRN (09:48)
[2021-04-09] MEDS ORDERED: LORazepam 1 MG TABLET PO PRN (09:48)
[2021-04-09] MEDS ORDERED: IBUPROFEN 400 MG TABLET (FP) PO PRN (09:48)
[2021-04-09] MEDS ORDERED: MENTHOL/PHENOL 1 EACH UD MM PRN (09:48)
[2021-04-09] MEDS ORDERED: BISMUTH SUBSALICYLATE 524 MG/30 ML PO PRN (09:48)
[2021-04-09] MEDS ORDERED: ONDANSETRON *ODT* 4 MG TABLET SL PRN (09:48)
[2021-04-09] MEDS ORDERED: MAGNESIUM HYDROX 2400MG/30ML ORAL SUSPENSION 30 ML CUP PO PRN (09:48)
[2021-04-09] MEDS ORDERED: ACETAMINOPHEN 325 MG TABLET (FP) PO PRN ×2 (09:48)
[2021-04-09] MEDS ORDERED: MAGNESIUM CITRATE 300 ML BOTTLE PO PRN (09:48)
[2021-04-09] MEDS ORDERED: METHOCARBAMOL 500 MG TABLET PO PRN (09:48)
[2021-04-09 10:33] VITALS: BMI 22.1
[2021-04-09] MEDS: PRENATAL VITAMINS W/ FOLIC ACID TABLET (FP) PO SCH (11:05)
[2021-04-09] MEDS: hydrOXYzine PAMOATE 25 MG CAPSULE (FP) PO SCH ×4 (11:05→22:22)
[2021-04-09] MEDS: LORazepam 2 MG TABLET PO SCH ×3 (11:05→22:22)
[2021-04-09] MEDS: MELATONIN 5 MG TABLETS PO SCH (22:22)
[2021-04-09] MEDS: THIAMINE HCL 100 MG TABLET (FP) PO SCH (22:22)
[2021-04-10] MEDS: LORazepam 2 MG TABLET PO SCH ×4 (05:39→22:22)
[2021-04-10] MEDS: hydrOXYzine PAMOATE 25 MG CAPSULE (FP) PO SCH ×5 (05:39→22:24)
[2021-04-10] MEDS: PRENATAL VITAMINS W/ FOLIC ACID TABLET (FP) PO SCH (10:16)
[2021-04-10 10:28] LABS: HEMATOCRIT 36.6 % (35.4-49); HEMOGLOBIN 12.3 GM/dL (11.7-16.9); MCH 32.2 pg (25.7-33.7); MCHC 33.6 g/dl (32.0-35.9); MEAN CELL VOLUME 95.8 fl (80-96); MEAN PLT VOLUME 9.1 fl (7.5-11.1); PLATELET COUNT 143 K/MM3 (134-434); RBC 3.82 M/mm3 (4.00-5.60); RDW 13.7 % (11.9-15.9); WHITE BLOOD COUNT 5.1 K/mm3 (4.0-10.0)
[2021-04-10 10:33] LABS: ALBUMIN 3.5 g/dl (3.4-5.0); BLOOD UREA NITROGEN 5.1 mg/dL (7-18)
[2021-04-10 10:36] LABS: CREATININE 0.7 mg/dL (0.55-1.3)
[2021-04-10 10:37] LABS: BILIRUBIN,TOTAL 1.9 mg/dL (0.2-1)
[2021-04-10] MEDS ORDERED: POTASSIUM CHLORIDE ORAL LIQUID 20 MEQ/15 ML PO ONE ×2 (12:30→16:30)
[2021-04-10] MEDS: THIAMINE HCL 100 MG TABLET (FP) PO SCH (22:22)
[2021-04-10] MEDS: MELATONIN 5 MG TABLETS PO SCH (22:24)
[2021-04-11] MEDS ORDERED: LORazepam 1 MG TABLET PO SCH (05:00)
[2021-04-11] MEDS: hydrOXYzine PAMOATE 25 MG CAPSULE (FP) PO SCH (06:19)
[2021-04-11 09:30] VITALS: BP 127/86; PULSE 105; TEMP 98.1
[2021-04-12] MEDS ORDERED: LORazepam 0.5 MG TABLET PO PRN
[2021-04-12] MEDS ORDERED: LORazepam 0.5 MG TABLET PO SCH (05:00)
[2021-04-13] MEDS ORDERED: LORazepam 0.5 MG TABLET PO ONE (05:00)
== END 2021-04-11 09:20 | disposition left against medical advice (07) | DRG 770 ==
LOC: YASAS 08:16 → Y6N 10:17
PROVIDERS: ADMIT Allergy & Immunology; ATTEND Allergy & Immunology
PROC: HZ2ZZZZ Detoxification Services for Substance Abuse Treatment (ICD-10-PCS; principal; 2021-04-09)
DX: F10.230 Alcohol dependence with withdrawal, uncomplicated (principal); E87.6 Hypokalemia; M79.605 Pain in left leg; Z99.89 Dependence on other enabling machines and devices
CPT/HCPCS: 36415; 80053; 85027; 86780; C9803; U0003; U0005

== ENCOUNTER 2022-03-03 15:54 | Inpatient (IN) | payer OTHER ==
[2022-03-03 20:26] VITALS: BMI 20.1
[2022-03-03] MEDS ORDERED: IBUPROFEN 400 MG TABLET (FP) PO PRN (22:52)
[2022-03-03] MEDS ORDERED: ONDANSETRON *ODT* 4 MG TABLET SL PRN (22:52)
[2022-03-03] MEDS ORDERED: MAGNESIUM CITRATE 300 ML BOTTLE PO PRN (22:52)
[2022-03-03] MEDS ORDERED: MAGNESIUM HYDROX 2400MG/30ML ORAL SUSPENSION 30 ML CUP PO PRN (22:52)
[2022-03-03] MEDS ORDERED: BENZOCAINE/MENTHOL (CHLORASEPTIC ) LOZENGE MM PRN (22:52)
[2022-03-03] MEDS ORDERED: LOPERAMIDE HCL 2 MG CAPSULE PO PRN (22:52)
[2022-03-03] MEDS ORDERED: METHOCARBAMOL 500 MG TABLET PO PRN (22:52)
[2022-03-03] MEDS ORDERED: DICYCLOMINE HCL 10 MG CAPSULE PO PRN (22:52)
[2022-03-03] MEDS ORDERED: ACETAMINOPHEN 325 MG TABLET (FP) PO PRN ×2 (22:52)
[2022-03-03] MEDS ORDERED: chlordiazePOXIDE HCL 25 MG CAPSULE PO PRN (22:52)
[2022-03-03] MEDS ORDERED: BISMUTH SUBSALICYLATE 524 MG/30 ML PO PRN (22:52)
[2022-03-03] MEDS ORDERED: MAG HYDROX/AL HYDROX/SIMETH 30 ML UNIT-DOSE CUP PO PRN (22:52)
[2022-03-04] MEDS ORDERED: chlordiazePOXIDE HCL 25 MG CAPSULE ONE ×3 (00:21→10:03)
[2022-03-04] MEDS: chlordiazePOXIDE HCL 25 MG CAPSULE PO SCH ×5 (00:24→22:26)
[2022-03-04] MEDS: PRENATAL VITAMINS W/ FOLIC ACID TABLET (FP) PO SCH (10:41)
[2022-03-04] MEDS: THIAMINE HCL 100 MG TABLET (FP) PO SCH (22:26)
[2022-03-04] MEDS: MELATONIN 5 MG TABLETS PO SCH (22:26)
[2022-03-05] MEDS: chlordiazePOXIDE HCL 25 MG CAPSULE PO SCH ×4 (05:58→22:26)
[2022-03-05] MEDS: PRENATAL VITAMINS W/ FOLIC ACID TABLET (FP) PO SCH (10:39)
[2022-03-05 11:12] LABS: HEMATOCRIT 40.9 % (35.4-49); HEMOGLOBIN 13.6 GM/dL (11.7-16.9); MCH 32.9 pg (25.7-33.7); MCHC 33.3 g/dl (32.0-35.9); MEAN CELL VOLUME 98.8 fl (80-96); MEAN PLT VOLUME 9.9 fl (7.5-11.1); PLATELET COUNT 128 10^3/uL (134-434); RBC 4.13 M/mm3 (4.00-5.60); RDW 14.2 % (11.9-15.9); WHITE BLOOD COUNT 7.7 K/mm3 (4.0-10.0)
[2022-03-05 11:15] LABS: ALBUMIN 3.9 g/dl (3.4-5.0); CALCIUM 9.5 mg/dL (8.5-10.1)
[2022-03-05 11:16] LABS: BLOOD UREA NITROGEN 3.7 mg/dL (7-18)
[2022-03-05 11:18] LABS: CREATININE 0.9 mg/dL (0.55-1.3)
[2022-03-05 11:20] LABS: BILIRUBIN,TOTAL 1.8 mg/dL (0.2-1)
[2022-03-05] MEDS ORDERED: POTASSIUM CHLORIDE ORAL LIQUID 20 MEQ/15 ML PO ONE ×2 (14:00→18:00)
[2022-03-05] MEDS: MELATONIN 5 MG TABLETS PO SCH (22:25)
[2022-03-05] MEDS: THIAMINE HCL 100 MG TABLET (FP) PO SCH (22:26)
[2022-03-06] MEDS ORDERED: chlordiazePOXIDE HCL 10 MG CAPSULE PO PRN
[2022-03-06] MEDS ORDERED: chlordiazePOXIDE HCL 10 MG CAPSULE PO SCH (05:00)
[2022-03-06 09:40] VITALS: BP 98/74; PULSE 105; TEMP 96.6
[2022-03-07] MEDS ORDERED: chlordiazePOXIDE HCL 10 MG CAPSULE PO SCH (05:00)
[2022-03-08] MEDS ORDERED: chlordiazePOXIDE HCL 10 MG CAPSULE PO ONE (05:00)
== END 2022-03-06 09:44 | disposition left against medical advice (07) | DRG 770 ==
LOC: YASAS 15:54 → Y6N 03-04 09:42
PROVIDERS: ADMIT Allergy & Immunology; ATTEND Allergy & Immunology
PROC: HZ2ZZZZ Detoxification Services for Substance Abuse Treatment (ICD-10-PCS; principal; 2022-03-04)
DX: F10.230 Alcohol dependence with withdrawal, uncomplicated (principal); F16.20 Hallucinogen dependence, uncomplicated; F41.9 Anxiety disorder, unspecified; Z28.310 Unvaccinated for COVID-19; Z86.718 Personal history of other venous thrombosis and embolism; Z56.0 Unemployment, unspecified
CPT/HCPCS: 36415; 80053; 85027; 86780; 93005; 93010; C9803-CS; U0003; U0005

== ENCOUNTER 2023-07-29 21:25 | Inpatient (IN) | payer OTHER ==
[2023-07-29 21:58] VITALS: BMI 21.6
[2023-07-29] MEDS ORDERED: POLYETHYLENE GLYCOL (HEALTHYLAX) 3350 17 GM PACKET PO PRN (22:25)
[2023-07-29] MEDS ORDERED: ONDANSETRON *ODT* 4 MG TABLET SL PRN (22:25)
[2023-07-29] MEDS ORDERED: P-EPHED 60MG/TRIPROLIDI 2.5MG TABLET PO PRN (22:25)
[2023-07-29] MEDS ORDERED: DICYCLOMINE HCL 10 MG CAPSULE PO PRN (22:25)
[2023-07-29] MEDS ORDERED: LOPERAMIDE HCL 2 MG CAPSULE PO PRN (22:25)
[2023-07-29] MEDS ORDERED: ACETAMINOPHEN 325 MG TABLET (FP) PO PRN ×2 (22:25)
[2023-07-29] MEDS ORDERED: hydrOXYzine PAMOATE 25 MG CAPSULE (FP) PO PRN (22:25)
[2023-07-29] MEDS ORDERED: METHOCARBAMOL 500 MG TABLET PO PRN (22:25)
[2023-07-29] MEDS ORDERED: MAG HYDROX/AL HYDROX/SIMETH 30 ML UNIT-DOSE CUP PO PRN (22:25)
[2023-07-29] MEDS ORDERED: guaiFENesin 600 MG TABLET.ER (FP) PO PRN (22:25)
[2023-07-29] MEDS ORDERED: BENZOCAINE/MENTHOL (CHLORASEPTIC ) LOZENGE MM PRN (22:25)
[2023-07-29] MEDS ORDERED: BENZONATATE 200 MG CAPSULE PO PRN (22:25)
[2023-07-29] MEDS ORDERED: BISMUTH SUBSALICYLATE 524 MG/30 ML PO PRN (22:25)
[2023-07-29] MEDS ORDERED: MAGNESIUM HYDROX 2400MG/30ML ORAL SUSPENSION 30 ML CUP PO PRN (22:25)
[2023-07-30] MEDS: PRENATAL VITAMINS W/ FOLIC ACID TABLET (FP) PO SCH (09:42)
[2023-07-30] MEDS ORDERED: chlordiazePOXIDE HCL 25 MG CAPSULE PO PRN (09:50)
[2023-07-30] MEDS: chlordiazePOXIDE HCL 25 MG CAPSULE PO SCH ×3 (10:18→22:10)
[2023-07-30 12:19] LABS: HEMATOCRIT 37.5 % (35.4-49); HEMOGLOBIN 12.6 GM/dL (11.7-16.9); MCH 33.8 pg (25.7-33.7); MCHC 33.6 g/dl (32.0-35.9); MEAN CELL VOLUME 100.4 fl (80-96); PLATELET COUNT 146 10^3/uL (134-434); RBC 3.74 M/mm3 (4.00-5.60); RDW 13.8 % (11.9-15.9); WHITE BLOOD COUNT 5.7 K/mm3 (4.0-10.0)
[2023-07-30 13:22] LABS: POTASSIUM 4.1 mmol/L (3.5-5.1)
[2023-07-30 13:37] LABS: ALBUMIN 4.3 g/dl (3.4-5.0); BLOOD UREA NITROGEN 8.6 mg/dL (7-18); CALCIUM 9.8 mg/dL (8.5-10.1)
[2023-07-30 13:39] LABS: CREATININE 0.9 mg/dL (0.55-1.3)
[2023-07-30 13:41] LABS: BILIRUBIN,TOTAL 2.3 mg/dL (0.2-1); TOT PROT 8.4 g/dl (6.4-8.2)
[2023-07-30] MEDS: THIAMINE HCL 100 MG TABLET (FP) PO SCH (22:10)
[2023-07-30] MEDS: MELATONIN 5 MG TABLETS PO SCH (22:10)
[2023-07-31] MEDS: chlordiazePOXIDE HCL 25 MG CAPSULE PO SCH ×4 (05:14→22:45)
[2023-07-31] MEDS: PRENATAL VITAMINS W/ FOLIC ACID TABLET (FP) PO SCH (10:11)
[2023-07-31] MEDS: THIAMINE HCL 100 MG TABLET (FP) PO SCH (22:44)
[2023-07-31] MEDS: MELATONIN 5 MG TABLETS PO SCH (22:45)
[2023-08-01] MEDS: chlordiazePOXIDE HCL 25 MG CAPSULE PO SCH ×4 (05:23→22:33)
[2023-08-01] MEDS: PRENATAL VITAMINS W/ FOLIC ACID TABLET (FP) PO SCH (10:32)
[2023-08-01 11:01] LABS: POTASSIUM 3.4 mmol/L (3.5-5.1)
[2023-08-01 11:03] LABS: ALBUMIN 3.5 g/dl (3.4-5.0); BLOOD UREA NITROGEN 6.5 mg/dL (7-18)
[2023-08-01 11:04] LABS: CALCIUM 9.4 mg/dL (8.5-10.1)
[2023-08-01 11:06] LABS: CREATININE 0.7 mg/dL (0.55-1.3)
[2023-08-01 11:08] LABS: BILIRUBIN,TOTAL 1.2 mg/dL (0.2-1)
[2023-08-01] MEDS: THIAMINE HCL 100 MG TABLET (FP) PO SCH (22:33)
[2023-08-01] MEDS: MELATONIN 5 MG TABLETS PO SCH (22:33)
[2023-08-02] MEDS ORDERED: chlordiazePOXIDE HCL 10 MG CAPSULE PO PRN
[2023-08-02] MEDS ORDERED: chlordiazePOXIDE HCL 10 MG CAPSULE PO SCH (05:00)
[2023-08-02 08:40] VITALS: BP 112/80; PULSE 74; RESP 17; TEMP 98
[2023-08-02] MEDS ORDERED: POTASSIUM CHLORIDE ORAL LIQUID 20 MEQ/15 ML PO ONE (09:30)
[2023-08-03] MEDS ORDERED: chlordiazePOXIDE HCL 10 MG CAPSULE PO SCH (05:00)
[2023-08-04] MEDS ORDERED: chlordiazePOXIDE HCL 10 MG CAPSULE PO ONE (05:00)
== END 2023-08-02 09:09 | disposition home or self-care (01) | DRG 775 ==
LOC: YASAS 21:25 → Y3N 22:52
PROVIDERS: ADMIT Allergy & Immunology; ATTEND Surgery
PROC: HZ2ZZZZ Detoxification Services for Substance Abuse Treatment (ICD-10-PCS; principal; 2023-07-29)
DX: F10.230 Alcohol dependence with withdrawal, uncomplicated (principal); F16.20 Hallucinogen dependence, uncomplicated; F41.9 Anxiety disorder, unspecified; E87.6 Hypokalemia; R74.8 Abnormal levels of other serum enzymes; Z28.310 Unvaccinated for COVID-19; Z28.9 Immunization not carried out for unspecified reason
CPT/HCPCS: 36415; 80053; 85027; 86780; 87635